=== PATIENT | male | born 1930 | race Caucasian/White ===

== ENCOUNTER 2016-10-15 13:56 | Inpatient (IN) ==
[~2016-10-15 13:56] MED LIST: *HR* FentaNYL (PF) 100 MCG/2 ML VIAL ONE; *HR* Heparin 10,000 UNIT/10 ML VIAL ONE; *HR* Midazolam HCl 2 MG/2 ML VIAL ONE; 0.9 % Sodium Chloride 1,000 ML ONE; Heparin 1,000 UNITS/500 mL NS 500 ML ONE; Nitroglycerin 1,000 MCG/10 ML VIAL IV ONE; Verapamil 5 MG/2 ML VIAL ONE
--- NOTE | 2016-10-15 14:32 | Pre-Sedation Evaluation ---
Pre-sedation evaluation - Pre-sedation checklist Date of procedure: 10/15/16 Procedure: cardiac cath +/- PCI Recent Vitals: 121/67 86 16 AF 96% on 2 L per NC H&P (including ROS) documented in medical record: Yes Previous reaction to sedatives/anesthetics: No (I will see herx) Dietary Status: No solid food in preceding 4 hrs and no liquid in preceding 2 hrs Airway Assessment: Patient can open mouth completely, TMJ function normal Dentition: dentures removed Possible difficult airway: No ASA Classification *see protocol: CLASS III-Severe systemic disease (Clear is what) Plan of Care: Pt appropriate candidate for procedure/moderate/conscious sedation
--- NOTE | 2016-10-15 14:43 | Cardiology History & Physical ---
Date of Encounter: 10/15/16 Time of Encounter: 14:30 Assessment and Plan (1) NSTEMI (non-ST elevated myocardial infarction) Current Visit: Yes Status: Acute The assessment and plan as outlined above was discussed with the patient and/or family members who expressed understanding and agreement. All questions were answered. As mentioned above, I had a lengthy discussion with the family concerning workup and treatment options. We will proceed with cardiac catheterization and possible intervention. We will check serial troponin levels. Patient was monitored closely on telemetry in the intensive care unit. (2) Chest pain due to myocardial ischemia Current Visit: Yes Status: Acute The assessment and plan as outlined above was discussed with the patient and/or family members who expressed understanding and agreement. All questions were answered. History of Present Illness Chief complaint: chest pain HPI: Mr. Shetty is a 85 year old male transferred to medical center from the [facility] with chest pain. Patient apparently complained of chest pain this morning while admitted at the [facility]. Patient was admitted the [facility] last week with pyelonephritis and pneumonia per the patient's family. This morning while at rest she did experience chest pressure rated 9 out of 10 in intensity. He was also experiencing shortness of breath. Patient also told his daughter he was having nausea and some dizziness. At this time patient denies any chest pain or chest tightness and cannot recall having any chest pain this morning. Patient does have baseline dementia. Patient does have a cardiac history status post percutaneous coronary intervention and stent implantation 2 at the [facility] in 2006. Patient does not recall his anginal symptoms at that time. At the [facility] this morning his troponin level was mildly elevated and he had an abnormal electrocardiogram performed I have reviewed the tracing it shows sinus rhythm with premature atrial complexes and ST segment elevation inferior anterior and lateral leads concerning for an injury pattern. We do not have any prior EKGs to compare however patient's family states patient did have electrocardiogram for 5 days ago at the [facility]. We will repeat echocardiogram here at 1408. I have reviewed the tracing it shows sinus rhythm 75 bpm possible prior inferior marker infarction age-indeterminate upsloping ST segment elevation inferior and lateral leads cannot rule out acute injury pattern however definitive reciprocal depression is not appreciated. I reviewed this ECG with Dr. Montgomery , he agrees that this is not classic for an acute STEMI. A lengthy discussion with the patient's family, they were initially hesitant to move forward with an invasive procedure we had a lengthy discussion concerning risks and benefits. The family did decide to proceed with cardiac catheterization. Past Med Surg Social Fam HX - Past Medical History Medical history: aortic aneurysm, coronary artery disease, dementia, peripheral artery disease - Past Surgical History Surgical History: angioplasty/stent Medications and Allergies Allergies diphenhydramine [From Benadryl] Allergy (Verified 10/15/16 14:10) See Comments Doxepin Allergy (Verified 10/15/16 14:10) See Comments loratadine Allergy (Verified 10/15/16 14:10) See Comments piperacillin Allergy (Verified 10/15/16 14:10) See Comments All Systems Review: A 10-system review of systems was performed and is negative for pertinent findings except as documented above in the HPI. - Cardiovascular Cardiovascular: as per HPI, chest pain at rest, dyspnea at rest - Psychiatric Psychiatric: other (memory loss) Physical Examination 121/67 75 AF 16 96% General: No Apparent Distress HEENT: Atraumatic, Normocephaly Neck: No JVD Cardiac: Reg Rate and Rhythm Lungs: Normal Breath Sounds Neuro: Other (Demented) Musculoskeletal: No Chest Wall Tenderness Extremities: No Clubbing (mild edema BLE)
[2016-10-15] MEDS ORDERED: Tirofiban 5 MG/100ML 5 MG/100 ML BAG IV ONE (15:01)
--- NOTE | 2016-10-15 15:43 | Procedure Note ---
Date of procedure: 10/15/16 Pre-op diagnosis: ACS, NSTEMI Post-op diagnosis: same Procedure: LM: no sig CAD Cx: patent stent in mid Cx, mid 25% LAD: 70% mid, D-1 with diffuse 20% RCA: patent stent in prox RCA, mid 99% stenosis with JANN 1 flow distally LVG: EF 50%, basal/mid AK PCI/stent x 1 mid RCA with 3.0 x 20 Synergy CHARLIE No complications Anesthesia: local Surgeon: Nam Pearson Estimated blood loss (cc): 10 Pathology: none sent Condition: stable Disposition: ICU
--- NOTE | 2016-10-15 16:01 | Invasive Diagnostic Lab Proc ---
Name: Duy Shetty Date of Study: 10/15/2016 Date: 1930 Ht: 70.0in Medical Record#: [id number] Age: 85 Wt: 201.94lb Gender: Male BSA: 2.1 Order #: [id number] BMI: 28.98 Physicians Procedure Physician: Nam Rod MD Referring MD: Referring MD: Staff Name Position Time In Jovita Szymanski RN Monitor 02:50 PM Yojana Nugent RN Dog Raiser 02:50 PM Yulia Camarillo RT Scrub 02:50 PM Indications Indication Non-Stemi Procedures Performed Procedure L HRT ARTERY/VENTRICLE ANGIO PRQ CARD CHARLIE STENT W/ANGIO 1 VSL Pre-Procedure Checklist Informed consent is complete signed and on chart. H\\T\\P is on chart. ID band is on and ID verified with patient. Patient NPO for procedure The procedure was described for the patient and questions were answered. Blood Pressure: 140/81 ECG is on chart. Rhythm: NSR Plan of Care Patient will tolerate the procedure without complications. Adequate level of comfort will be maintained. Hemodynamics will remain stable Patient will recover from procedure without complications. Respiratory function will be maintained. Cardiac rhythm will remain stable. Patient temperature will be maintained. Patient and/or family have verbalized understanding of the procedure. Patient Education Chief Complaint/Reason for Test: Cardiac Cath Developmental Category: Geriatric (65+ years) Developmentally Appropriate for Age: Yes Learning Barriers: Cognitive Education Needs: Procedure Education Method: Verbal Information Taught: Cardiac Cath Educational Evaluation: Needs further instruction Intravenous Access Time IV Size Location DC'd Fluid/Drip Rate Units RN 02:46 PM Started with 20g 1 1/4" Rt Arm 0.9NaCl 25 ml/hr Yojana Nugent RN 02:46 PM 22g 1 " Peripheral-Lock On Arrival Lt Arm Yes Allergies loratadine Doxepin diphenhydramine piperacillin Vital Signs Time BP (mmHg) HR (bpm) O2 Sat. RR (bpm) LOC 02:47 PM 133 / 81 89 95 % 16 5 = Fully awake and oriented or at pre-proc level 02:53 PM / % 5 = Fully awake and oriented or at pre-proc level 02:53 PM / % 4 = Oriented but drowsy 03:08 PM / % 5 = Fully awake and oriented or at pre-proc level 02:51 PM 129 / 76 83 94 % 19 02:56 PM 124 / 73 81 94 % 11 03:01 PM 119 / 71 75 95 % 23 03:04 PM 98 / 62 74 95 % 27 03:06 PM 99 / 50 57 92 % 18 03:12 PM 111 / 61 64 96 % 21 03:16 PM 114 / 67 67 95 % 10 03:21 PM 119 / 70 71 95 % 13 03:26 PM 132 / 72 71 95 % 02:26 PM 140 / 81 79 97 % 26 02:31 PM 121 / 67 83 93 % 19 02:37 PM 138 / 84 79 92 % 19 02:41 PM 138 / 80 80 95 % 23 02:46 PM 133 / 81 80 95 % Procedural Medications Time Medication Dose Units Method Given By 02:50 PM Lidocaine 2% 20 ml Subcutaneous Nam Rod MD 02:15 PM Oxygen 2 L/min nasal cannula Finley PointYojana barba RN 02:51 PM Versed 1 mg Intravenous RaffiYojana barba RN 02:51 PM Fentanyl 25 mcg Intravenous RaffiYojana barba RN 02:54 PM Oxygen 4 L/min nasal cannula RaffiYojana barba RN 03:01 PM Heparin 6000 units Intravenous Finley PointYojaan barba RN 03:05 PM Aggrastat Bolus: 46 ml Intravenous Yojana Nugent RN 03:20 PM Plavix 600 mg Orally [place] PointYojana barba RN ASA Classification: CLASS III- Severe systemic disease (i.e. prior AMI, diabetes with vascular complications, morbid obesity) Zacarias Score Preprocedure Postprocedure Activity 2- Moves 4 extremities sustained head lift Activity 2- Moves 4 extremities sustained head lift Circulation 2- SBP +/= 20 points of pre-anesthetic level Circulation 2- SBP +/= 20 points of pre-anesthetic level Consciousness 2- Awake and alert oriented x 3 Consciousness 2- Awake and alert oriented x 3 O2 Saturation 2- Able to maintain O2 satruation of 92% on room air O2 Saturation 2- Able to maintain O2 satruation of 92% on room air Respiratory 2- Able to deep breathe and cough well Respiratory 2- Able to deep breathe and cough well Total Score 10 Total Score 10 Contrast Agent: Isovue Diagnostic Contrast: 108 ml Total Contrast: 108 ml Fluoro Dose: 1050 mGy Activated Clotting Time Time Seconds to Clot 03:15 PM 239 Procedure Log Time Note Enter By 02:15 PM Pt arrived to [facility] 2 at 14:15 [facility] 02:15 PM Physician arrived 14:15 [facility] 02:15 PM Time: 14:15 Oxygen on at 2 L/min per nasal cannula by Yojana Nugent RN [facility] 02:16 PM IV Supplies used: J loop Angio Cath. [facility] 02:16 PM Meet and greet completed. PATIENT HAS DEMENTIA AND IS UNSURE IF HE WANTS TO PROCEED WITH PROCEDURE. HE WANTS DR. ROD TO SPEAK TO HIS DAUGHTER TO GET HER PERMISSION. AWAITING DAUGHTERS ARRIVAL [facility] 02:16 PM Patient charges- Angio tray pack, Navilyst 3mm J, Pulse Oximetry and ACIST tubing and transducer [facility] 02:25 PM Vitals capture started with the following parameters, Patient=Adult, Interval=5 min, Initial Ybtdiqoj=451 mmHg, Deflation Rate=5 mmHg, Cuff placed on Left Arm 02:26 PM HR=79 bpm, FCJS=554/81 mmhg, SpO2=97.0 %, Resp=26 B/min, Comment=Sinus Rhythm 02:31 PM HR=83 bpm, KSAJ=060/67 mmhg, SpO2=93.0 %, Resp=19 B/min, Comment=Sinus Rhythm 02:37 PM HR=79 bpm, KUEE=748/84 mmhg, SpO2=92.0 %, Resp=19 B/min, Comment=Sinus Rhythm 02:41 PM CathStat 02:41 PM Reference ECG taken 02:41 PM Recorded ECG: HR=80 Condition=Condition 1 02:41 PM HR=80 bpm, FWUF=058/80 mmhg, SpO2=95.0 %, Resp=23 B/min, Comment=Sinus Rhythm 02:42 PM Pressure channel 1 zeroed. 02:46 PM HR=80 bpm, OYIJ=439/81 mmhg, SpO2=95.0 %, Comment=Sinus Rhythm 02:47 PM Hair removed from procedure site in procedure lab using clippers. Bilateral groin prepped with Chloraprep by Yojana Nugent RN, safety strap applied then patient was draped. Skin intact. [facility] 02:48 PM SPOKE AT LENGTH WITH FAMILY D/T PATIENT HAS DEMENTIA AND IS A POOR HISTORIAN. CONSENTED FOR C PER DAUGHTER POA. [facility] 02:49 PM Sign in performed according to hospital policy. [facility] 02:49 PM Procedure start 14:49 [facility] 02:49 PM Time out performed according to hospital policy [facility] 02:49 PM Case Delayed Family issue [facility] 02:50 PM Time: 14:50 20 ml Lidocaine 2% to right groin Subcutaneous Given by Nam Rod MD [facility] 02:50 PM Access obtained by percutaneous puncture. 5Fr 10cm Terumo Holt sheath placed in right Femoral vein. [id number] [facility] 02:50 PM Jovita Szymanski RN Position: Monitor Time in: 14:50 [facility] 02:50 PM Yojana Nugent RN Position: Dog Raiser Time in: 14:50 [facility] 02:50 PM Yulia Camarillo Position: Scrub Time in: 14:50 [facility] 02:51 PM Access obtained by percutaneous puncture. 6Fr 10cm Terumo Holt sheath placed in right Femoral artery. [id number] [facility] 02:51 PM 5Fr FL 4 catheter inserted over the wire DN l[facility]n 02:51 PM HR=83 bpm, AMGO=459/76 mmhg, SpO2=94.0 %, Resp=19 B/min, Comment=Sinus Rhythm 02:51 PM Time: 14:51 Versed 1 mg Intravenous Given by Yojana Nugent RN 02:51 PM Time: 14:51 Fentanyl 25 mcg Intravenous Given by Yojana Nugent RN 02:52 PM LCA angiography performed in multiple views. [facility] 02:52 PM Recorded Pressure: Ao, HR=74, Condition=Condition 1 (Aorta) Ao 108/65/84 02:53 PM Time: 14:53 Patient comfortable and pain free: Yes [facility] 02:53 PM Time: 14:53LOC: 5 = Fully awake and oriented or at pre-proc level [facility] 02:54 PM Time: 14:54 Oxygen on at 4 L/min per nasal cannula by Yojana Nugent RN 02:55 PM Catheter removed [facility] 02:55 PM 5Fr FR 4 catheter inserted over the wire DN [facility] 02:55 PM RCA angiography performed in multiple views. [facility] 02:55 PM Recorded Pressure: Ao, HR=86, Condition=Condition 1 (Aorta) Ao 90/48/70 02:56 PM Catheter removed [facility] 02:56 PM HR=81 bpm, OUWP=062/73 mmhg, SpO2=94.0 %, Resp=11 B/min, Comment=Sinus Rhythm 02:[address] ROD OUT TO SPEAK TO FAMILY [facility] 03[facility] PM PCI Status Urgent [facility] 03:00 PM PCI Indication: PCI for high risk Non-STEMI or unstable angina [facility] 03:00 PM PCI lesion in Mid RCA. Pre Stenosis: 99 Pre JANN Flow: 1: Slow Penetration without Perfusion [facility] 03:00 PM PCI lesion in Mid RCA. [facility] 03:00 PM 6Fr JR 4 Runway guide catheter was used to cannulate the PCI vessel successfully. reused? No [facility] 03:01 PM Time: 15:01 Heparin 6000 units Intravenous Given by Yojana Nugent RN [facility] 03:01 PM Inflation device was opened. [facility] 03:01 PM HR=75 bpm, YIGQ=808/71 mmhg, SpO2=95.0 %, Resp=23 B/min, Comment=Sinus Rhythm 03:01 PM .014 Kinetex Plus 185cm guide wire across target lesion- successful. reused? No [facility] 03:02 PM Recorded Pressure: Ao, HR=74, Condition=Condition 1 (Aorta) Ao 102/56/77 03:03 PM 2.5 mm x 12 mm Emerge Monorail balloon across target lesion- successful. reused? No [facility] 03:03 PM Balloon inflated @ 12 janice for 14 seconds [facility] 03:04 PM NIBP STAT measurement started. 03:04 PM Balloon inflated @ 14 janice for 8 seconds [facility] 03:04 PM HR=74 bpm, NIBP=98/62 mmhg, SpO2=95.0 %, Resp=27 B/min, Comment=Sinus Rhythm 03:05 PM Balloon inflated @ 14 janice for 14 seconds [facility] 03:05 PM Balloon catheter removed intact. [facility] 03:06 PM Time: 15:05 Aggrastat Bolus: 46 ml Intravenous Given by Yojana Nugent RN Bowden pump [facility] 03:06 PM HR=57 bpm, NIBP=99/50 mmhg, SpO2=92.0 %, Resp=18 B/min, Comment=Sinus Rhythm 03:06 PM 3.0 mm x 15 mm Emerge Monorail balloon across target lesion- successful. reused? No [facility] 03:07 PM Balloon inflated @ 14 janice for 15 seconds [facility] 03:08 PM Time: 14:53LOC: 4 = Oriented but drowsy [facility] 03:08 PM Time: 14:53 Patient comfortable and pain free: Yes [facility] 03:08 PM Balloon catheter removed intact. [facility] 03[facility] PM Recorded Pressure: Ao, HR=66, Condition=Condition 1 (Aorta) Ao 101/57/77 03:09 PM 3.0mm x 20mm Synergy bioabsorbable stent across target lesion- successful Lot #[id number] [facility] 03:10 PM Stent deployed @ 16 janice for 15 seconds [facility] 03:10 PM Stent delivery system removed intact. [facility] 03:11 PM Guide catheter removed intact. [facility] 03:11 PM Guide wire removed intact. [facility] 03:12 PM HR=64 bpm, PRSI=101/61 mmhg, SpO2=96.0 %, Resp=21 B/min, Comment=Sinus Rhythm 03:12 PM Recorded ECG: HR=64 Condition=Condition 1 03:13 PM 5Fr Pigtail [facility] 03:13 PM Catheter selectively placed in left ventricle [facility] 03:13 PM Recorded Pressure: LV, HR=64, Condition=Condition 1 (Left Ventricle) LV 99/13/14 03:14 PM Bolus angiogram of left Ventricle complete: 8 ml/sec for a total [facility] PM [facility] 03:14 PM JR4 Guide reinserted [facility] 03:15 PM At 15:15 the ACT was 239 seconds. [facility] 03:16 PM RCA angiography in multiple views [facility] 03:16 PM HR=67 bpm, QJRI=953/67 mmhg, SpO2=95.0 %, Resp=10 B/min, Comment=Sinus Rhythm 03:16 PM Guide catheter removed intact. [facility] 03:20 PM Procedure completed at 15:20 [facility] 03:21 PM Sign out completed: Radiation Dose 1050.10 mGy Fluoro Time: 6.2 Isovue 370 - 200ml contrast 108 ml given by Nam Rod MD. Complications: NoneCardiac Rehab Consult needed: YesConfirmed administered medications: Yes [facility] 03:21 PM HR=71 bpm, CTEO=760/70 mmhg, SpO2=95.0 %, Resp=13 B/min, Comment=Sinus Rhythm 03:22 PM Time: 15:20 Plavix 600 mg Orally Given by Yojana Nugent RN [facility] 03:23 PM Time: 15:08 Patient comfortable and pain free: Yes [facility] 03:23 PM Time: 15:08LOC: 5 = Fully awake and oriented or at pre-proc level [facility] 03:25 PM ASA Class CLASS III- Severe systemic disease (i.e. prior AMI, diabetes with vascular complications, morbid obesity) [facility] 03:26 PM HR=71 bpm, XUBV=973/72 mmhg, SpO2=95.0 %, Comment=Sinus Rhythm 03:34 PM Coronary Dominance: right [facility] 03:34 PM Lesion found in Distal RCA. Pre Stenosis: 25 Pre JANN Flow: 3: Complete and Brisk Flow/Perfusion [facility] 03:34 PM Lesion found in Mid LAD. Pre Stenosis: 70 Pre JANN Flow: 3: Complete and Brisk Flow/Perfusion [facility] 03:34 PM Lesion found in 1st Diagonal. Pre Stenosis: 20 Pre JANN Flow: 3: Complete and Brisk Flow/Perfusion [facility] 03:34 PM Lesion found in Mid Circumflex. Pre Stenosis: 25 Pre JANN Flow: 3: Complete and Brisk Flow/Perfusion [facility] 03:35 PM Lesion found in 1st Marginal. Pre Stenosis: 20 Pre JANN Flow: 3: Complete and Brisk Flow/Perfusion [facility] 03:42 PM Mid/Distal Left Anterior Descending Coronary Artery and diagonal branches with 70% stenosis. [facility] 03:42 PM Circumflex, Obtuse Marginal, Left Posterior Descending, and Left Posterolateral Coronary Arteries with 25 % stenosis. [facility] 03:43 PM Right Coronary, Right Posterior Descending Arteries with Right Posterolateral and Acute Marginal branches with 99 % stenosis. [facility] 03:46 PM Isovue 370 - 200ml,1 Bottle(s) used. [facility] 03:46 PM Sheath left in place to be pulled on floor/holding area [facility] 03:46 PM Post ECG NSR [facility] 03:46 PM Post Blood Pressure 132/72 [facility] 03:46 PM 15:46 Post Pulses Bilateral DP \\T\\ PT 2+ [facility] 03:47 PM Information taught Cardiac Cath and PCI [facility] 03:47 PM Education needs Procedure, Plan of Care, and Safe \\T\\ Effective Use of Equipment [facility] 03:47 PM Learning barriers :None [facility] 03:47 PM Education Methods Verbal [facility] 03:47 PM Education evaluation Able to repeat information [facility] 03:47 PM Site status No bleeding/hematoma - Rt Groin as reported by Yulia Camarillo RT at 15:47 [facility] 03:47 PM Opsite applied [facility] 03:47 PM Report given to Anne SCHAEFER Pt taken to ICU Room #12. 15:47 [facility] 03:47 PM Plavix, Effient or Brilinta given Yes [facility] 03:47 PM Delay to floor No [facility] 03:47 PM Patient out of room: 15:47 [facility] 03:47 PM Family placed in consult room. [facility] 03:47 PM Complications: None [facility] 03:48 PM Fluoro Time: 6.2 [facility] 03:48 PM Isovue 370 - 200ml contrast 108 ml given by Nam Rod MD. [facility] 03:48 PM Radiation Dose 1050.10 mGy [facility] Complications Complication None Hemodynamics Pressures Site Systolic/A Wave Diastolic/V Wave Mean AO 108 65 84 AO 90 48 70 AO 102 56 77 AO 101 57 77 LV 99 13 14 Post Procedure Information Blood Pressure: 132/72 mmHg Rhythm: NSR Post procedural instructions were given Site Checks Time Location Status Staff Sheath In? Note 03:47 PM Rt Groin No bleeding/hematoma Yulia Camarillo RT Yes venous and arterial sheath in place Pulses Time Site Pre-Procedure Post-Procedure Note 10/15/2016 2:47:00 PM Bilateral DP \\T\\ PT 2+ 3:46:00 PM Bilateral DP \\T\\ PT 2+ Updated by Jovita Szymanski RN on 10/15/2016 3:54:49 PM electronically signed on 10/15/2016 3:55:39 PM with status of Final
[2016-10-15 16:13] LABS: Basophils % 0.3 %; Eosinophils # 0.3 K/mcL (0.0-0.6); Eosinophils % 2.7 %; Hematocrit 36.5 % (37.5-50.1); Lymphocytes # 1.1 K/mcL (0.6-4.6); Lymphocytes % 9.3 %; Mean Corpuscular HGB Conc 32.9 g/dL (31.6-35.5); Mean Corpuscular Hemoglobin 30.5 pg (28.0-33.3); Mean Corpuscular Volume 92.6 fL (83.0-100.0); Mean Platelet Volume 10.3 fL (9.4-12.4); Monocytes % 8.7 %; Neutrophils # 9.4 K/mcL (1.6-8.9); Platelet Count 283 K/mcL (140-400); Red Blood Count 3.94 M/mcL (4.19-5.50); Red Cell Distribution Width 13.3 % (11.5-14.5)
[2016-10-15 16:19] LABS: INR 1.3
[2016-10-15 16:22] LABS: Activated Partial Thrombo Time 96.6 Seconds (26.0-36.0)
[2016-10-15 16:33] LABS: BUN/Creatinine Ratio 16 (6-26); Blood Urea Nitrogen 13 mg/dL (8-26); Calcium 8.5 mg/dL (8.6-10.8); Carbon Dioxide 25 mEq/L (19-29); Chloride 99 mEq/L (98-109); Glucose 114 mg/dL (70-99); Magnesium 1.8 mg/dL (1.6-2.6); Osmolality,Calculated 279 (280-300); Potassium 3.9 mEq/L (3.5-4.5); Sodium 134 mEq/L (136-145); eGFR For African Americans > 60 (> 60); eGFR For Non-African Americans > 60 (> 60)
[2016-10-15] MEDS ORDERED: *HR* Atropine Sulfate 1 MG/10 ML SYRINGE ONE (17:24)
--- NOTE | 2016-10-15 20:46 | Internal Medicine Consult Note ---
Date of Encounter: 10/15/16 Time of Encounter: 20:42 - Assessment and Plan (1) Pyelonephritis Current Visit: Yes Status: Acute Assessment and plan: Patient was supposed to be on ciprofloxacin until October 21. Will continue ciprofloxacin 400 mg intravenously twice a day. Imaging at the [facility] showed pyelonephritis there was not obstructing stone. No hydronephrosis. (2) Aspiration pneumonia Current Visit: Yes Status: Acute Assessment and plan: He is on ciprofloxacin. I will keep NPO for now. speech therapy to see the patient in the morning to decide about diet advancement Qualifiers: Qualified Code(s): J69.0 - Pneumonitis due to inhalation of food and vomit (3) NSTEMI (non-ST elevated myocardial infarction) Current Visit: Yes Status: Acute Assessment and plan: He is on dual antiplatelet therapy currently after right coronary stent placement. Hemodynamically stable. Distal right leg pulsations intact. He is currently chest pain free (4) Leg weakness Current Visit: Yes Status: Acute Assessment and plan: [facility] have [facility] weakness of both lower extremities. He was found to have compression fracture of L2 with height loss of 67% which was a progression from a prior height loss of 33%. He has not had an MRI. I was unable to examine his lower extremity after his recent angiogram with femoral artery puncture. This will need to be addressed once neurologic exam is feasible. Qualifiers: Qualified Code(s): R29.898 - Other symptoms and signs involving the musculoskeletal system Internal Medicine - CN: HPI - Data of Consult Patient: new to practice Consult date: 10/15/16 Requesting Physician: Canelo Montgomery DO - Consult Narrative Reason for consult: management of medical comorbidities History of present illness: Mr. Shetty is a 85 year old male with multiple medical problems including dementia, coronary artery disease status post PCI, peripheral vascular disease, a lauric aneurysm [facility] has been treated for pyelonephritis in addition to antifungal treatment topical and systemic for fungal groin infection as well as suspected aspiration pneumonia was sent from the [facility] today after he has been experiencing chest pain. He was noted to have a significant changes in the inferior leads. Because of continued pain he was taken by cardiologists to the [facility] and an RCA samples place. Patient does have Q waves in the inferior leads however on reviewing his prior electrocardiogram he did have q waves in his inferior leads. Patient denies any chest pain during my interview Past Med Surg Social Fam HX - Past Medical History Medical history: coronary artery disease, dementia, peripheral artery disease - Past Surgical History Surgical History: angioplasty/stent - Social History Smoking Status: Never smoker Smokeless Tobacco Status: No Alcohol use: none Drug use: none Review of systems: 10 point review systems is negative except for HPI Internal Medicine - CN: Meds Allergies diphenhydramine [From Benadryl] Allergy (Verified 10/15/16 14:10) See Comments Doxepin Allergy (Verified 10/15/16 14:10) See Comments loratadine Allergy (Verified 10/15/16 14:10) See Comments piperacillin Allergy (Verified 10/15/16 14:10) See Comments Internal Medicine - CN: Exam - Constitutional Vitals: Temp Pulse Resp BP Pulse Ox 98.4 F 84 16 152/84 95 10/15/16 20:00 10/15/16 20:00 10/15/16 20:00 10/15/16 20:00 10/15/16 20:00 Exam: Gen.: patient is alert oriented not in distress. Mask face with infrequent blinking Cardiac: Normal S1 S2 no additional sounds or murmurs chest: few crackles in the bases abdomen soft nontender nondistended normal bowel sounds lower extremity: lax calf muscles. Intact DP and PT pulses in right leg neuro no focal deficit Internal Medicine - CN: Reslt - Labs CBC & Chem 7: 10/15/16 16:03 10/15/16 16:03 Labs: Short CBC 10/15/16 Range/Units 16:03 WBC 12.0 H (4.3-11.1) K/mcL Hgb 12.0 L (12.9-16.9) g/dL Hct 36.5 L (37.5-50.1) % Plt Count 283 (140-400) K/mcL Neutrophils # 9.4 H (1.6-8.9) K/mcL BMP 10/15/16 16:03 Sodium 134 L Potassium 3.9 Chloride 99 Carbon Dioxide 25 BUN 13 Creatinine 0.80 Glucose 114 H Calcium 8.5 L Cardiac Enzymes 10/15/16 Range/Units 16:03 Troponin I 0.67 H* (0-0.03) ng/mL - ABG Interpretation ABG results: PT/INR, D-dimer PT 14.0 Seconds (9.4-12.1) H 10/15/16 16:03 Consult Discharge Plan - Plan [facility]errals: [facility] [Primary Care Provider] -
[2016-10-15] MEDS: Nystatin POWDER 30 GM BOTTLE TP SCH (21:24)
[2016-10-15] MEDS ORDERED: *HR* LORazepam 2 MG/ML VIAL IVP ONE (21:34)
[2016-10-15] MEDS: 0.9 % Sodium Chloride 1,000 ML IVC SCH (22:41)
[2016-10-16 04:57] LABS: Basophils % 0.3 %; Eosinophils # 0.7 K/mcL (0.0-0.6); Eosinophils % 5.6 %; Hematocrit 34.2 % (37.5-50.1); Hemoglobin 11.4 g/dL (12.9-16.9); Immature Granulocytes % 0.7 % (0-4); Lymphocytes # 1.1 K/mcL (0.6-4.6); Lymphocytes % 9.4 %; Mean Corpuscular HGB Conc 33.3 g/dL (31.6-35.5); Mean Corpuscular Hemoglobin 30.7 pg (28.0-33.3); Mean Corpuscular Volume 92.2 fL (83.0-100.0); Mean Platelet Volume 10.6 fL (9.4-12.4); Monocytes # 1.2 K/mcL (0.0-1.3); Monocytes % 10.3 %; Neutrophils # 8.7 K/mcL (1.6-8.9); Platelet Count 253 K/mcL (140-400); Red Blood Count 3.71 M/mcL (4.19-5.50); Red Cell Distribution Width 13.3 % (11.5-14.5); Segmented Neutrophils % 73.7 %
[2016-10-16 05:11] LABS: Alanine Aminotransferase 34 Units/L (0-55); Albumin 2.5 g/dL (3.5-5.0); Albumin/Globulin Ratio 0.7 (1.1-2.2); Alkaline Phosphatase 47 Units/L (38-126); Aspartate Amino Transferase 86 Units/L (5-34); BUN/Creatinine Ratio 17 (6-26); Bilirubin,Total 0.5 mg/dL (0.2-1.2); Blood Urea Nitrogen 13 mg/dL (8-26); Calcium 8.6 mg/dL (8.6-10.8); Carbon Dioxide 27 mEq/L (19-29); Chloride 103 mEq/L (98-109); Cholesterol 131 mg/dL (< 200); Globulin 3.5 g/dL (2.4-3.5); Glucose 102 mg/dL (70-99); HDL Cholesterol 33 mg/dL (40-59); LDL Cholesterol,Calculated 81 mg/dL (0-99); Osmolality,Calculated 280 (280-300); Potassium 3.3 mEq/L (3.5-4.5); Sodium 135 mEq/L (136-145); Triglycerides 85 mg/dL (< 150); eGFR For African Americans > 60 (> 60); eGFR For Non-African Americans > 60 (> 60)
[2016-10-16] MEDS ORDERED: *HR* Enoxaparin 40 MG/0.4 ML SYRINGE SQ SCH (06:00)
[2016-10-16] MEDS ORDERED: Fluconazole 100 MG TABLET PO SCH (09:00)
[2016-10-16] MEDS ORDERED: Famotidine 20 MG/2 ML VIAL IVP SCH (09:00)
[2016-10-16] MEDS ORDERED: Aspirin 81 MG TAB.CHEW PO SCH (09:00)
--- NOTE | 2016-10-16 09:21 | Cardiology Progress Note ---
Date of Encounter: 10/16/16 Time of Encounter: 08:30 Assessment and Plan (1) NSTEMI (non-ST elevated myocardial infarction) Current Visit: Yes Status: Acute Per cardiology: -NSTEMI with peak troponin 28.59. -Cath 10/15/16 with left main no significant CAD, patent stent in mid circumflex , 25% stenosis mid circumflex, 70% stenosis mid LAD, diagonal 1 with diffuse 20 % stenosis, Patent stent in proximal RCA, mid RCA with 99% stenosis with successful CHARLIE x1 placed, EF 50%. -On asa, plavix. -AST 86, ALT 34. Suspect AST elevation may be due to acute MA. -Echocardiogram pending. -Currently chest pain free. -Patient was supposed to be transferred to rehab facility (as previously set up by [place]), will consult hospice social worker to facilitate transfer to rehab facility once clinically stable. -Will add beta chen, lopressor 25mg po BID. -Will add statin, Simvastatin 40mg po daily. -Will continue to monitor. (ANOOP) (2) CAD (coronary artery disease) Current Visit: Yes Status: Chronic Per cardiology: -Known history of CAD. -CHARLIE 10/15/16. -On asa, statin, beta chen, plavix. -Patient and family educated on asa and plavix for one year without interruption. State understanding, -Will continue to monitor. (ANOOP). Qualifiers: Coronary Disease-Associated Artery/Lesion type: [place] artery [place] vs. transplanted heart: cahto heart Associated angina: with unspecified angina Qualified Code(s): I25.119 - Atherosclerotic heart disease of [place] coronary artery with unspecified angina pectoris (3) Ventricular ectopy Current Visit: Yes Status: Acute Per cardiology: -Patient with frequent PVCs, 1 6 beat run on non-sustained ventricular tachycardia, 2 5 beat runs, and 3 4 beat runs. -Currently sinus rhythm at 78beats/minute. -Recent NSTEMI status post CHARLIE 10/15/16 -On telemetry. -Average heart rate 85. -K+= 3.3 -WIll add beta chen as previosuly mentioned. -Will replace K+, follow labs. -Will continue to monitor.(ANOOP) (4) Hypertension Current Visit: Yes Status: Chronic Per cardiology: -History of hypertension. -On lopressor 50mg PO BID at home -BPs 110-140s systolic and 60-80s diastolic. -WIll add back lopressor 25mg PO BID (current SBP 110's-120's) -Will continue to monitor (ANOOP). Qualifiers: Hypertension type: essential hypertension Qualified Code(s): I10 - Essential (primary) hypertension Discussion w patient/family: The assessment and plan as outlined above was discussed with the patient and/or family members who expressed understanding and agreement. All questions were answered. Thank you for involving us in the care of your patient. Please call with any questions. Patient seen and examined with DEACON Kitchen Discussed and reviewed with Dr.John Goldstein. Subjective Principal diagnosis: chest pain, NSTEMI Interval history: is an 85 year old male with a relevant past medical history of CAD status post stenting at [facility] 2006, PAD, Dementia, aortic aneurysm. Patient with recent admission to [facility] with pyelonephritis and pneumonia per family. Family states he was getting ready to be discharged to a rehab facility , when patient developed chest pain and nausea. Patient was then transferred to [place] and underwent cardiac catheterization 10/15/16 with CHARLIE x1. Patient currently chest pain free and denies chest pain overnight. (ANOOP) Objective Vital Signs, Last 4 Hours Pulse Resp BP Pulse Ox 10/16/16 06:00 89 16 114/87 100 10/16/16 05:37 88 General: Conversant, No Apparent Distress HEENT: Normocephaly, Mucus Membranes Moist Neck: No JVD, Normal carotid pulses Cardiac: Reg Rate and Rhythm, Normal S1 and S2, No Murmur Lungs: Normal Breath Sounds, No Wheeze, Rales, Rhonchi Neuro: Alert and responsive Abdomen: Soft, Non-Tender Skin: Other (Bilateral groins with redness. Right groin access site without ecchymosis or hematoma. ) Musculoskeletal: No Chest Wall Tenderness Extremities: No Clubbing, No Cyanosis, No Edema, Normal Pulses Results 10/16/16 04:24 10/16/16 04:24 Lab Results Active Medications Aspirin (Aspirin) 81 mg PO DAILY [facility] Stop: 04/17/17 09:01 Clopidogrel Bisulfate (Plavix) 75 mg PO DAILY [facility] Stop: 04/17/17 09:01 Enoxaparin Sodium (Lovenox) 40 mg SQ 0600 [facility] PRN Reason: Protocol Stop: 04/17/17 06:01 Last Admin: 10/16/16 05:43 Dose: 40 mg Famotidine (Pepcid) 20 mg IVP DAILY [facility] PRN Reason: Protocol Stop: 04/17/17 09:01 Fluconazole (Diflucan) 100 mg PO DAILY [facility] Stop: 04/17/17 09:01 Sodium Chloride (0.9 % Sodium Chloride) 1,000 mls @ 100 mls/hr IVC .Q10H [facility] Stop: 04/16/17 15:46 Last Admin: 10/15/16 22:41 Dose: 100 mls/hr Ciprofloxacin Lactate (Cipro 400 Mg/200 Ml) 400 mg in 200 mls @ 200 mls/hr IVPB Q12H [facility] Stop: 04/16/17 23:01 Last Infusion: 10/16/16 01:00 Dose: Infused Metoprolol Tartrate (Lopressor) 25 mg PO BID [facility] Stop: 04/17/17 09:16 Nystatin (Nystop) 1 appl TP BID [facility] Stop: 04/16/17 21:01 Last Admin: 10/15/16 21:24 Dose: 1 appl Simvastatin (Zocor) 40 mg PO HS [facility] PRN Reason: Protocol Stop: 04/17/17 21:01 Laboratory Tests 10/15/16 10/16/16 10/16/16 16:03 04:24 04:24 WBC 11.7 H Hgb 11.4 L Hct 34.2 L Potassium 3.3 L Creatinine 0.76 AST 86 H ALT 34 Troponin I 0.67 H* Triglycerides 85 Cholesterol 131 LDL Cholesterol, Calc 81 HDL Cholesterol 33 L 10/16/16 04:24 WBC Hgb Hct Potassium Creatinine AST ALT Troponin I 28.59 H* Triglycerides Cholesterol LDL Cholesterol, Calc HDL Cholesterol - Imaging and Cardiology Echo: pending Cardiac cath: report reviewed - EKG Interpretation EKG results cardiology: personally reviewed (No ECG to personally review.), other (Telemetry reviewed with average heart rate 85. Frequent PVCs noted. Occasional couplets. 6 runs of non-sustained ventricular tachycardia. Longest run 6 beats. Currently sinus rhythm at 78 beats/ minute.) Consult Discharge Plan - Plan [facility]errals: [facility] [Primary Care Provider] -
[2016-10-16] MEDS: Nystatin POWDER 30 GM BOTTLE TP SCH ×2 (10:29→21:06)
[2016-10-16] MEDS: 0.9 % Sodium Chloride 1,000 ML IVC SCH (10:30)
--- NOTE | 2016-10-16 13:08 | ECHO - Doppler Report ---
Echocardiogram Name: Duy Shetty Date of Study: 10/16/2016 Date: 1930 Ht: 70.0 in Medical Record#: [id number] Age: 85 Wt: 202.0 lb Gender: Male BSA: 2.1 Order #: [id number] Location: [facility] Room #: ICU12 Reading Physician: Canelo Montgomery DO, NATHAN, MAGUI FLORES Life Science Teacher: Curly Pinedo RN Ordering Physician: Nam Pearson MD Primary Physician: [facility] Indications: Acute Coronary Syndrome Impressions: LVEF 55%. Normal LV chamber size, wall thickness and overall function. Mild segmental left ventricular systolic dysfunction. Mild left ventricular diastolic dysfunction. Normal right ventricular structure and function. Mild mitral regurgitation. Mild pulmonary hypertension. Left Ventricular Wall Motion: Rest Echo Findings The mid inferior, basal inferior and basal inferior lateral rutledge were hypokinetic. All other wall segments showed normal motion. Findings: Study Quality * Technically adequate exam. ECG Findings * Normal sinus rhythm. Left Ventricle * LVEF 55%. * Normal LV chamber size, wall thickness and overall function. * Mild segmental left ventricular systolic dysfunction. * Mild left ventricular diastolic dysfunction. Right Ventricle * Normal right ventricular structure and function. Left Atrium * Mildly dilated left atrium. Right Atrium * Mildly dilated right atrium. Interatrial Septum * No evidence of PFO by color Doppler. Aortic Valve * Trileaflet aortic valve. * No aortic regurgitation. * No aortic stenosis. Mitral Valve * Mild mitral annular calcification * Mild mitral regurgitation. * No mitral stenosis. Tricuspid Valve * Normal tricuspid valve structure and function. * Trace tricuspid regurgitation. * Mild pulmonary hypertension. Pulmonic Valve * Pulmonic valve is not well visualized. * No pulmonic regurgitation. Aorta * Normally sized aortic root. Pericardium * The pericardium appears normal. IVC * Normal IVC dimensions and inspiratory collapse. Pulmonary Artery * Normal visualized portions of the main pulmonary artery. History Hypertension Years 20 Packs 0.5 Family History of CAD History of CAD/PTCA Myocardial Infarction Measurements: BP: 139/ 82 2D Normal Values RVIDd: 3.50 cm <2.7 cm IVSd: 1.30 cm 0.6 - 1.0 cm LVIDd: 5.00 cm 3.7 - 5.6 cm LVPWd: 1.30 cm 0.6 - 1.1 cm LVIDs: 3.50 cm 1.5 - 3.6 cm LA: 4.10 cm 2.0 - 4.0cm %FS: 30.00 cm >25 % LVOT Diam: 2.00 cm LA volume: 62 Mitral Valve Peak E:.94 m/sec Peak A:1.14 m/sec E/A Ratio:0.8 Peak E' Lat Shawn:7.12 cm/s Peak E' Med Shawn:5.75 cm/s E/E' Lat Ratio:13.2 E/E' Med Ratio:16.4 Tricuspid Valve TV Regurg Peak Grad: 33.00mmHg TV Regurg Peak Shawn: 2.88m/sec Updated by Canelo Montgomery DO, FACTruman, SANDRA, MAGUI on 10/16/2016 1:02:33 PM electronically signed on 10/16/2016 1:03:01 PM with status of Final Wall Motion Silva: 1=Normal, 2=Hypokinesis, 3=Akinesis, 4=Dyskinesis, 5=Aneurysmal, 6=Hyperkinetic, X=Not Visualized (Blank)=Missing
--- NOTE | 2016-10-16 13:28 | Internal Med Progress Note ---
Date of Encounter: 10/16/16 Time of Encounter: 11:00 - Assessment and plan (1) Aspiration pneumonia Current Visit: Yes Status: Acute Assessment and plan: Follow speech and swallow eval Patient is afebrile , no leukocytosis, no extra O2 reqirement Will not escalate antibiotics for now Continue current care Qualifiers: Qualified Code(s): J69.0 - Pneumonitis due to inhalation of food and vomit (2) Leg weakness Current Visit: Yes Status: Acute Assessment and plan: Patients' lowe rextremity exam revealed 5/5 strength bilaterally with normal sensation to touch He was found to have compression fracture of L2 with height loss of 67% which was a progression from a prior height loss of 33%. However, given NSTEMI with PCI, he will need Plavix for at least 18 months Follow up with PCP for MRI and ELECTIVE surgery when cleared b cardiology in the future Qualifiers: Qualified Code(s): R29.898 - Other symptoms and signs involving the musculoskeletal system (3) NSTEMI (non-ST elevated myocardial infarction) Current Visit: Yes Status: Acute Assessment and plan: s/p PCI Echo showed EF preserved 55%, mild diastolic dysfunction, mild MR, mild pulmonary hypertension. Continue management as per cardiology (4) Pyelonephritis Current Visit: Yes Status: Acute Assessment and plan: Continue ciprofloxacin per [facility] reports (5) Ventricular ectopy Current Visit: Yes Status: Acute Assessment and plan: Per cardiology (6) CAD (coronary artery disease) Current Visit: Yes Status: Chronic Qualifiers: Coronary Disease-Associated Artery/Lesion type: [place] artery [place] vs. transplanted heart: [place] heart Associated angina: with unspecified angina Qualified Code(s): I25.119 - Atherosclerotic heart disease of [place] coronary artery with unspecified angina pectoris (7) Hypertension Current Visit: Yes Status: Chronic Qualifiers: Hypertension type: essential hypertension Qualified Code(s): I10 - Essential (primary) hypertension - Subjective Interval history: 85 year old male with multiple medical problems including dementia, coronary artery disease status post PCI, peripheral vascular disease, Seen at bedside has no new complains - Constitutional Vitals: Temp Pulse Resp BP Pulse Ox 98.3 F 83 20 162/93 100 10/16/16 12:22 10/16/16 11:00 10/16/16 11:00 10/16/16 11:00 10/16/16 11:00 General appearance: Present: A&O X 3, pleasant, no acute distress - Head Head exam: Present: atraumatic, normocephalic - Eye Eye exam: Present: PERRL, conjuntiva pink, sclera anicteric Pupils: Present: PERRL - Neck Neck exam general surgery: Present: supple, trachea midline. Absent: lymphadenopathy - Respiratory Respiratory exam: Present: CTAB. Absent: accessory muscle use, rales, rhonchi, wheezes - Cardiovascular Cardiovascular exam: Present: RRR, +S1, +S2. Absent: diastolic murmur, gallop, rubs, systolic murmur - GI/Abdominal GI/Abdominal exam: Present: normal bowel sounds, soft, no peritoneal signs. Absent: distended, tenderness - Extremities Exam Extremities exam: Present: warm, radial pulses palpable and symetrical. Absent : calf tenderness, cyanotic, pedal edema - Neurological Exam Neurological exam: Present: CN II-XII intact, oriented X3, no focal deficits. Absent: pronater drift, facial droop, speech deficit - Skin Skin exam: Present: dry, intact Internal Medicine: Result - Labs CBC & Chem 7: 10/16/16 04:24 10/16/16 04:24 Labs: Short CBC 10/15/16 10/16/16 Range/Units 16:03 04:24 WBC 12.0 H 11.7 H (4.3-11.1) K/mcL Hgb 12.0 L 11.4 L (12.9-16.9) g/dL Hct 36.5 L 34.2 L (37.5-50.1) % Plt Count 283 253 (140-400) K/mcL Neutrophils # 9.4 H 8.7 (1.6-8.9) K/mcL BMP 10/15/16 10/16/16 16:03 04:24 Sodium 134 L 135 L Potassium 3.9 3.3 L Chloride 99 103 Carbon Dioxide 25 27 BUN 13 13 Creatinine 0.80 0.76 Glucose 114 H 102 H Calcium 8.5 L 8.6 Cardiac Enzymes 10/15/16 10/16/16 Range/Units 16:03 04:24 Troponin I 0.67 H* 28.59 H* (0-0.03) ng/mL Liver Function 10/16/16 Range/Units 04:24 Total Bilirubin 0.5 (0.2-1.2) mg/dL AST 86 H (5-34) Units/L ALT 34 (0-55) Units/L Alkaline Phosphatase 47 (38-126) Units/L Albumin 2.5 L (3.5-5.0) g/dL - ABG Interpretation ABG results: PT/INR, D-dimer PT 14.0 Seconds (9.4-12.1) H 10/15/16 16:03 Consult Discharge Plan - Plan [facility]errals: [facility] [Primary Care Provider] -
--- NOTE | 2016-10-16 14:31 | Event Note ---
Date of Encounter: 10/16/16 Time of Encounter: 14:00 - Cardiology Event Note Echo showed EF preserved 55%, mild diastolic dysfunction, mild MR, mild pulmonary hypertension. Family seen at bedside. Patient resting comfortably and appears chest pain free. Transfer orders to [address] [place] [address] at [facility] placed when bed available. Hospitalist team following. consult placed for discharge planning.
--- NOTE | 2016-10-16 15:35 | Electrocardiograph Report ---
[address] [place] [address] Test Date: 2016-10-15 Pat Name: Duy Shetty Department: 106 Room: 12 Gender: M [employer] Consultant: : 1930 Requested By: Nam Pearson Order Number: [id number] Reading MD: Filiberto Martin MD Measurements Intervals [place] Rate: 75 P: 62 ID: [id number] QRS: 21 QRSD: 110 T: 75 QT: 397 QTc: 426 Interpretive Statements SINUS RHYTHM INFERIOR MYOCARDIAL INFARCTION, POSSIBLY ACUTE WITH POSTERIOR EXTENSION ACUTE OR Electronically Signed On 10-16-2016 15:33:02 EDT by Filiberto Martin MD
--- NOTE | 2016-10-16 15:37 | Electrocardiograph Report ---
[address] [place] [address] Test Date: 2016-10-15 Pat Name: Duy Shetty Department: 109 Room: 12 Gender: M Nurse Extern: : 1930 Requested By: Nam Pearson Order Number: [id number] Reading MD: Filiberto Martin MD Measurements Intervals [place] Rate: 79 P: 70 IA: 188 QRS: -4 QRSD: 99 T: 4 QT: 392 QTc: 427 Interpretive Statements SINUS RHYTHM WITH OCCASIONAL SUPRAVENTRICULAR PREMATURE COMPLEXES INFERIOR MYOCARDIAL INFARCTION, OF INDETERMINATE AGE WITH POSTERIOR EXTENSION Electronically Signed On 10-16-2016 15:35:21 EDT by Filiberto Martin MD
[2016-10-16] MEDS ORDERED: *HR* LORazepam 2 MG/ML VIAL IVP ONE (20:25)
[2016-10-17] MEDS ORDERED: *HR* LORazepam 2 MG/ML VIAL IVP ONE (00:26)
[2016-10-17] MEDS ORDERED: OLANZapine 10 MG VIAL IM ONE (03:17)
[2016-10-17] MEDS ORDERED: *HR* Enoxaparin 40 MG/0.4 ML SYRINGE SQ SCH (06:00)
[2016-10-17 06:29] LABS: Hematocrit 34.6 % (37.5-50.1); Hemoglobin 11.7 g/dL (12.9-16.9); Mean Corpuscular HGB Conc 33.8 g/dL (31.6-35.5); Mean Corpuscular Volume 91.5 fL (83.0-100.0); Mean Platelet Volume 10.1 fL (9.4-12.4); Platelet Count 244 K/mcL (140-400); Red Blood Count 3.78 M/mcL (4.19-5.50); Red Cell Distribution Width 13.1 % (11.5-14.5)
[2016-10-17 06:39] LABS: BUN/Creatinine Ratio 16 (6-26); Blood Urea Nitrogen 11 mg/dL (8-26); Calcium 8.3 mg/dL (8.6-10.8); Carbon Dioxide 22 mEq/L (19-29); Chloride 103 mEq/L (98-109); Glucose 91 mg/dL (70-99); Osmolality,Calculated 279 (280-300); Potassium 3.9 mEq/L (3.5-4.5); Sodium 135 mEq/L (136-145); eGFR For African Americans > 60 (> 60); eGFR For Non-African Americans > 60 (> 60)
[2016-10-17] MEDS ORDERED: Fluconazole 100 MG TABLET PO SCH ×2 (09:00→14:30)
[2016-10-17] MEDS ORDERED: Famotidine 20 MG/2 ML VIAL IVP SCH (09:00)
[2016-10-17] MEDS ORDERED: Aspirin 81 MG TAB.CHEW PO SCH (09:00)
[2016-10-17] MEDS: Nystatin POWDER 30 GM BOTTLE TP SCH (09:52)
[2016-10-17] MEDS ORDERED: Acetaminophen 325 MG TABLET PO PRN (11:23)
--- NOTE | 2016-10-17 13:08 | Internal Med Progress Note ---
Date of Encounter: 10/17/16 Time of Encounter: 10:30 - Assessment and plan (1) Aspiration pneumonia Current Visit: Yes Status: Acute Assessment and plan: Suspected Patient is able to tolerate po Continue ciprofloxacin Patient is afebrile, no leukocytosis No O2 requirements Qualifiers: Qualified Code(s): J69.0 - Pneumonitis due to inhalation of food and vomit (2) Leg weakness Current Visit: Yes Status: Acute Assessment and plan: Patients' lowe rextremity exam revealed 5/5 strength bilaterally with normal sensation to touch He was found to have compression fracture of L2 with height loss of 67% which was a progression from a prior height loss of 33%. However, given NSTEMI with PCI, he will need Plavix for at least 18 months Follow up with PCP for MRI and ELECTIVE surgery when cleared b cardiology in the future Qualifiers: Laterality: unspecified laterality Qualified Code(s): R29.898 - Other symptoms and signs involving the musculoskeletal system (3) NSTEMI (non-ST elevated myocardial infarction) Current Visit: Yes Status: Acute Assessment and plan: s/p PCI Echo showed EF preserved 55%, mild diastolic dysfunction, mild MR, mild pulmonary hypertension. Continue management as per cardiology (4) Pyelonephritis Current Visit: Yes Status: Acute Assessment and plan: Continue [facility]fl[facility] (5) Ventricular ectopy Current Visit: Yes Status: Acute Assessment and plan: Per cardiology (6) CAD (coronary artery disease) Current Visit: Yes Status: Chronic Qualifiers: Coronary Disease-Associated Artery/Lesion type: [place] artery [place] vs. transplanted heart: [place] heart Associated angina: with unspecified angina Qualified Code(s): I25.119 - Atherosclerotic heart disease of [place] coronary artery with unspecified angina pectoris (7) Hypertension Current Visit: Yes Status: Chronic Qualifiers: Hypertension type: essential hypertension Qualified Code(s): I10 - Essential (primary) hypertension - Subjective Interval history: 85 year old male with multiple medical problems including dementia, coronary artery disease status post PCI, peripheral vascular disease, Seen at bedside has no new complains Overnight he had some agitation, and was given some Ativan. He does have a history of dementia He was said to also have had a rash this morning, i did not see any rash at my time of eval His diflucan and ciprofloxacin were held due to the rash Will resume Cardiology pans to discharge him to rehab today, agree with plan Patient is a transfer from [place] , where he was being managed for acute urinary retention with pyelopnephritis, seems cultures were done, as admitting note stated patient needs to be on Ciprofloxacin 400mg po bid till 10/21 I recommend we continue this , as well as topical and po diflucan Patient's indwelling Penny needs to be kept until a voiding trial can be done as out-patient, recommend follow up at the [place] His LE weakness , possibly due to deconditioning as he does have Compression fracture of L2 on Lumbar CT per initial consult note, but patient is able to move his extremities without a sensory deficit. I doubt he will benefit from surgery at this time. Given his diagnosis of NSTEMI with PCI, he will need Plavix for at least 18 months Follow up with PCP for MRI and ELECTIVE surgery when cleared by cardiology in the future, after discharge from rehab - Constitutional Vitals: Temp Pulse Resp BP Pulse Ox 98.4 F 78 19 159/87 96 10/17/16 00:24 10/17/16 08:00 10/17/16 08:00 10/17/16 08:00 10/17/16 08:00 General appearance: Present: A&O X 1, no acute distress. Absent: answers questions appropriately - Head Head exam: Present: atraumatic, normocephalic - Eye Eye exam: Present: PERRL, conjuntiva pink, sclera anicteric Pupils: Present: PERRL - Neck Neck exam general surgery: Present: supple, trachea midline. Absent: lymphadenopathy - Respiratory Respiratory exam: Present: CTAB. Absent: accessory muscle use, rales, rhonchi, wheezes - Cardiovascular Cardiovascular exam: Present: RRR, +S1, +S2. Absent: diastolic murmur, gallop, rubs, systolic murmur - GI/Abdominal GI/Abdominal exam: Present: normal bowel sounds, soft, no peritoneal signs. Absent: distended, tenderness - Extremities Exam Extremities exam: Present: warm, radial pulses palpable and symetrical. Absent : calf tenderness, cyanotic, pedal edema - Neurological Exam Neurological exam: Present: CN II-XII intact, oriented X3, no focal deficits. Absent: pronater drift, facial droop, speech deficit - Skin Skin exam: Present: dry Internal Medicine: Result - Labs CBC & Chem 7: 10/17/16 03:59 10/17/16 03:59 Labs: Short CBC 10/17/16 Range/Units 03:59 WBC 12.7 H (4.3-11.1) K/mcL Hgb 11.7 L (12.9-16.9) g/dL Hct 34.6 L (37.5-50.1) % Plt Count 244 (140-400) K/mcL BMP 10/17/16 03:59 Sodium 135 L Potassium 3.9 Chloride 103 Carbon Dioxide 22 BUN 11 Creatinine 0.67 L Glucose 91 Calcium 8.3 L - ABG Interpretation ABG results: PT/INR, D-dimer PT 14.0 Seconds (9.4-12.1) H 10/15/16 16:03 Consult Discharge Plan - Plan Instructions: Myocardial Infarction (DC) [facility]errals: [facility] [Primary Care Provider] -
--- NOTE | 2016-10-17 13:29 | Discharge Summary ---
Date of Encounter: 10/17/16 Time of Encounter: 08:30 - Discharge Diagnosis (1) NSTEMI (non-ST elevated myocardial infarction) Priority: Primary Status: Acute Comments: NSTEMI peak trop 28, s/p CHARLIE to mid RCA (2) CAD (coronary artery disease) Priority: Secondary Status: Chronic Qualifiers: Coronary Disease-Associated Artery/Lesion type: [place] artery [place] vs. transplanted heart: [place] heart Associated angina: with unspecified angina Qualified Code(s): I25.119 - Atherosclerotic heart disease of [place] coronary artery with unspecified angina pectoris (3) Ventricular ectopy Priority: Secondary Status: Chronic (4) Hypertension Priority: Secondary Status: Chronic Qualifiers: Hypertension type: essential hypertension Qualified Code(s): I10 - Essential (primary) hypertension - Discharge Medications Prescriptions: Clopidogrel [Plavix] 75 mg PO DAILY #30 tablet Simvastatin [Zocor] 40 mg PO HS #30 tablet Home Medications: Albuterol Neb [Proventil Neb] 2.5 mg IH Q4H PRN 10/16/16 [History] Carbamide Peroxide 4 drop BOTH EARS BID 10/16/16 [History] Chlorhexidine Rinse 15 ml MM BID 10/16/16 [History] Ciprofloxacin [Cipro] 500 mg PO BID 10/16/16 [History] Fluconazole [Diflucan] 100 mg PO BID 10/16/16 [History] HYDROcodone/Acet 5/325 mg [[place] 5-325 mg] 1 tab PO Q4H PRN 10/16/16 [History] Ipratropium/Albuterol Neb [Duoneb] 3 ml IH TID 10/16/16 [History] Metoprolol [Lopressor] 50 mg PO BID 10/16/16 [History] Mv-Mn/FA/Vit K/Lycop/Lut/Coq10 [Daily Multivitamin Capsule] 1 each PO DAILY [History] Nystatin POWDER [Nystop] 1 appl TP BID 10/16/16 [History] Omeprazole [PriLOSEC] 20 mg PO DAILY 10/16/16 [History] Aspirin 81 mg PO DAILY tab.chew 10/17/16 [Rx] Clopidogrel [Plavix] 75 mg PO DAILY #30 tablet 10/17/16 [Rx] Simvastatin [Zocor] 40 mg PO HS #30 tablet 10/17/16 [Rx] Allergies/Adverse Reactions: Allergies diphenhydramine [From Benadryl] Allergy (Verified 10/16/16 07:58) See Comments Doxepin Allergy (Verified 10/16/16 07:58) See Comments loratadine Allergy (Verified 10/16/16 07:58) See Comments piperacillin Allergy (Verified 10/16/16 07:58) See Comments Procedures/tests Complete & Pending: Procedures Performed prior 72 hours Category Date Time Status CL Cardiac Catheterization [CL] Stat [employer] 10/15/16 14:11 Ordered ECG 12 lead ECG [ECG] Stat Y 10/15/16 14:12 Completed ECG 12 lead ECG [ECG] Stat Y 10/15/16 15:33 Completed EV echocardiogram Routine Y 10/16/16 15:33 Completed Date of admission: 10/15/16 13:56 Primary care physician: PCP [facility] Consults: 10/15/16 15:33 Consult to Cardiac Rehabilitation-Phase1 [CONS] Routine Comment: Reason for Consult: AMI Call Completed: Yes Consult to Cardiac Rehabilitation-Phase1 [CONS] Routine Comment: Reason for Consult: post op cath Call Completed: Yes Consult to Hospitalist [CONS] Routine Consulting Provider: Hospitalist Gloria Reason for Consult: Co-morbid conditions Call Completed: Yes Consult to Nurse Navigator [CONS] Routine Comment: 10/15/16 20:21 Consult to Speech Therapy [CONS] Routine Comment: Evaluate, develop and implement POC Reason for Consult: aspiration Call Completed: No 10/16/16 09:11 Consult to Miller Supervisor [CONS] Routine Reason for SW Consult: discharge planning Discharging clinician: William Brock Anticipated date of discharge: 10/17/16 - Patient Status Disposition: Transfer SNF Condition: Good Functional capacity at discharge: wheelchair bound Overall status at discharge: patient is progressing back to baseline - Discharge Instructions Instructions: Myocardial Infarction (DC) [facility] Care Provider[facility] - - Diet and Activity Activity: increase activity as tolerated, other (Transferring to intermediate) Diet: other (Cardiac diet) - Hospital Course Hospital course: Mr. Shetty is a 85 year old male who was transferred from [facility] for chest pain/NSTEMI with peak troponin at 28.59. Patient underwent urgent LHC with CHARLIE x1 to mid RCA. Patient admitted to ICU after LHC. Clinically chest pain free since procedure. Ventricular ectopy noted on telemetry, however no significant runs of V. tach. Improved with resumption of home dose of beta chen. Patient has experienced some episodes of confusion during the evening, however family reports about baseline. Hospitalist service consult during admission for assistance with continuation of care regarding treatment of pyelonephritis previously been managed by the [place]. Discussed with hospitalist service today with recommendations to continue Penny catheter (to be evaluated at [facility] regarding discontinuation) and continue with Cipro (antibiotics) as outlined until October 21, 2016-- hospitalist team has now signed off. Patient with stable vital signs. Patient being discharged today to [facility] per discussion with social work. Family agreeable to plan. All questions answered. Continuity of care form completed. (ANOOP) - Time Spent with Patient Total time spent providing and/or coordinating discharge services: Greater than 30 minutes Physical Examination Vital Signs Temp Pulse Resp BP Pulse Ox 10/17/16 08:00 78 19 159/87 96 10/17/16 06:00 81 17 161/92 98 10/17/16 04:41 75 16 144/81 96 10/17/16 04:30 75 10/17/16 02:00 89 18 145/72 96 10/17/16 00:24 98.4 F 10/17/16 00:23 88 10/17/16 00:00 88 20 161/86 96 10/16/16 22:00 94 16 146/85 95 10/16/16 20:08 87 26 160/85 94 L 10/16/16 20:04 97.9 F 10/16/16 18:16 80 20 126/85 93 L 10/16/16 17:30 89 20 147/79 93 L 10/16/16 16:30 99 19 166/99 93 L 10/16/16 14:50 85 21 133/78 94 L General: Conversant, No Apparent Distress HEENT: Atraumatic, Normocephaly, Mucus Membranes Moist Neck: No JVD, Normal carotid pulses Cardiac: Reg Rate and Rhythm, Normal S1 and S2, No Murmur Lungs: Normal Breath Sounds, No Wheeze, Rales, Rhonchi Neuro: Alert and responsive Abdomen: Soft, Non-Tender Skin: Other (Bilateral gorin areas with redness. No hematoma/bruising noted to right groin access site. ) Musculoskeletal: No Chest Wall Tenderness Extremities: No Clubbing, No Cyanosis, No Edema, Normal Pulses
--- NOTE | 2016-10-17 15:19 | Physician Discharge Referral ---
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 (4) Hypertension Priority: Secondary Status: Chronic Expected Duration of Placement: unknown Prognosis: Good Aware of Diagnosis: Patient, Family Aware of Prognosis: Patient, Family - Transfer Medications Prescriptions: Clopidogrel [Plavix] 75 mg PO DAILY #30 tablet Simvastatin [Zocor] 40 mg PO HS #30 tablet Home Medications: Albuterol Neb [Proventil Neb] 2.5 mg IH Q4H PRN 10/16/16 [History] Carbamide Peroxide 4 drop BOTH EARS BID 10/16/16 [History] Chlorhexidine Rinse 15 ml MM BID 10/16/16 [History] Ciprofloxacin [Cipro] 500 mg PO BID 10/16/16 [History] Fluconazole [Diflucan] 100 mg PO BID 10/16/16 [History] HYDROcodone/Acet 5/325 mg [[place] 5-325 mg] 1 tab PO Q4H PRN 10/16/16 [History] Ipratropium/Albuterol Neb [Duoneb] 3 ml IH TID 10/16/16 [History] Metoprolol [Lopressor] 50 mg PO BID 10/16/16 [History] Mv-Mn/FA/Vit K/Lycop/Lut/Coq10 [Daily Multivitamin Capsule] 1 each PO DAILY [History] Nystatin POWDER [Nystop] 1 appl TP BID 10/16/16 [History] Omeprazole [PriLOSEC] 20 mg PO DAILY 10/16/16 [History] Aspirin 81 mg PO DAILY tab.chew 10/17/16 [Rx] Clopidogrel [Plavix] 75 mg PO DAILY #30 tablet 10/17/16 [Rx] Simvastatin [Zocor] 40 mg PO HS #30 tablet 10/17/16 [Rx] Allergies/Adverse Reactions: Allergies diphenhydramine [From Benadryl] Allergy (Verified 10/16/16 07:58) See Comments Doxepin Allergy (Verified 10/16/16 07:58) See Comments loratadine Allergy (Verified 10/16/16 07:58) See Comments piperacillin Allergy (Verified 10/16/16 07:58) See Comments - Respiratory Orders None - Ancillary Orders May use pressure relief devices daily prn, May consult with Dentist, Corporate Lawyer, Staff Rn PRN - Advance Directives Living Will: No Power of Manager Solution: No Code Status: Full Code - Mobility Orders Chair - Rehabiliation Orders Rehab Potential: Fair Rehab Orders: Evaluation for Physical Therapy, Evaluation for Occupational Therapy - Diet Orders Cardiac CERTIFICATION: I certify that the transfer of the above named patient to an Extended Care Facility is necessary for the continuing treatment of the diagnosis listed. The above information is true and accurate reflection of patient's current condition. Confidential - Redisclosure prohibited without a patient's written consent.
[2016-10-17 17:38] VITALS: BP 148/69
== END 2016-10-17 17:22 | DRG 246 ==
LOC: ICNU 13:56 → SUATTDRO 13:56
PROVIDERS: ADMIT Internal Medicine; ATTEND Internal Medicine